=== PATIENT | male | born 1945 | race Caucasian/White ===

== ENCOUNTER 2018-07-27 11:40 | Emergency (ER) | payer BC, OTHER ==
[2018-07-27 11:48] VITALS: BP 147/75; PULSE 73; TEMP 97.8; BMI 21.2
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
== END 2018-07-27 13:17 | disposition home or self-care (01) ==
LOC: FER 11:40
DX: S97.82XA Crushing injury of left foot, initial encounter (principal); W22.8XXA Striking against or struck by other objects, initial encounter; Y93.89 Activity, other specified; Y92.89 Other specified places as the place of occurrence of the external cause; F17.210 Nicotine dependence, cigarettes, uncomplicated
CPT/HCPCS: 73610-TC-LT-FY; 73630-TC-LT; 99281-25

== ENCOUNTER 2023-12-28 18:25 | Emergency (ER) | payer OTHER ==
[2023-12-28 18:37] VITALS: BP 146/84; PULSE 73; RESP 20; TEMP 99.2; BMI 21.2
[2023-12-28] MEDS ORDERED: DALBAVANCIN HCL 500 MG VIAL (RESTRICTED TO ID ONLY) IVPB ONE (19:57)
[2023-12-28] MEDS ORDERED: ACETAMINOPHEN INJECTION 100 ML IVPB ONE (19:58)
[2023-12-28 20:04] LABS: HEMATOCRIT 39.5 % (35.4-49); HEMOGLOBIN 13.1 G/dL (11.7-16.9); MCH 30.9 pg (25.7-33.7); MCHC 33.1 g/dl (32.0-35.9); MEAN CELL VOLUME 93.3 fl (80-96); MEAN PLT VOLUME 8.1 fl (7.5-11.1); PLATELET COUNT 237.1 10^3/uL (134-434); RBC 4.23 10^6/uL (4.00-5.60); RDW 13.7 % (11.9-15.9); WHITE BLOOD COUNT 10.8 10^3/uL (4.0-10.8)
[2023-12-28] MEDS: ACETAMINOPHEN 1000 MG/100 ML BAG IVPB ONE (20:08)
[2023-12-28] MEDS: DALBAVANCIN HCL 1,500 MG in DEXTROSE 5%-WATER - 500 ML IVPB ONE (20:08)
[2023-12-28 20:29] LABS: ALBUMIN 4.3 g/dl (3.4-5.0); BILIRUBIN,TOTAL 0.5 mg/dl (0.2-1); CALCIUM 9.3 mg/dl (8.5-10.1); CREATININE 0.9 mg/dl (0.6-1.3); TOT PROT 6.9 g/dl (6.4-8.2)
== END 2023-12-28 21:44 | disposition home or self-care (01) ==
LOC: FER 18:25
PROC: 3E033GC Introduction of Other Therapeutic Substance into Peripheral Vein, Percutaneous Approach (ICD-10-PCS; principal; 2023-12-28)
PROC: 3E030NZ Introduction of Analgesics, Hypnotics, Sedatives into Peripheral Vein, Open Approach (ICD-10-PCS; 2023-12-28)
DX: L03.114 Cellulitis of left upper limb (principal)
CPT/HCPCS: 36415; 80053; 85027; 87040; 96365; 96375; 99284-25; J0131; J0875

== ENCOUNTER 2023-12-30 11:25 | Emergency (ER) | payer OTHER ==
[2023-12-30 12:12] VITALS: BP 138/93; PULSE 90; RESP 16; TEMP 97.9; BMI 32.6
== END 2023-12-30 12:14 | disposition home or self-care (01) ==
LOC: FER 11:25
DX: L03.012 Cellulitis of left finger (principal)
CPT/HCPCS: 99283-25

== ENCOUNTER 2025-01-20 13:56 | Emergency (ER) | payer OTHER ==
[2025-01-20] MEDS: SODIUM CHLORIDE 0.9% 500 ML INFUS.BAG IV ONE (14:20)
[2025-01-20] MEDS: ACETAMINOPHEN 1000 MG/100 ML BAG IVPB ONE (14:20)
[2025-01-20 14:21] VITALS: BP 133/70; PULSE 64; RESP 20; TEMP 98.2; BMI 23.4
[2025-01-20] MEDS ORDERED: ACETAMINOPHEN INJECTION 100 ML ONE (14:45)
[2025-01-20 15:16] LABS: ABSOLUTE IMMATURE GRANULOCYTES 0.03 x10^3/uL (0.0-0.031); BASOPHILS # 0.02 x10^3/uL (0.01-0.08); EOSINOPHIL % 0.4 % (0.8-7.0); EOSINOPHILS # 0.05 x10^3/uL (0.04-0.54); HEMATOCRIT 37.5 % (40.1-51.0); HEMOGLOBIN 12.4 g/dL (13.7-17.5); MCHC 33.1 g/dl (32.3-36.5); MEAN CELL VOLUME 93.1 fl (79.0-92.2); MEAN PLT VOLUME 9.8 fl (9.4-12.4); MONOCYTE # 1.74 x10^3/uL (0.30-0.82); MONOCYTE % 12.2 % (5.3-12.2); PLATELET COUNT 334 x10^3/uL (163-337)
[2025-01-20 15:23] LABS: CALCIUM 8.6 mg/dl (8.5-10.1); POTASSIUM 4.1 mmol/L (3.5-5.1)
[2025-01-20] MEDS ORDERED: cefTRIAXone SODIUM 1 GM VIAL ONE (15:40)
[2025-01-20] MEDS ORDERED: AZITHROMYCIN 500 MG VIAL IVPB ONE (15:40)
[2025-01-20] MEDS: CEFTRIAXONE 1,000 MG in DEXTROSE 5%-WATER - 50 ML IVPB ONE (16:01)
[2025-01-20] MEDS: AZITHROMYCIN IVPB 500 MG in DEXTROSE 5%-WATER - 250 ML IVPB ONE (16:07)
[2025-01-20] MEDS: BENZONATATE 200 MG CAPSULE PO ONE (16:27)
== END 2025-01-20 18:41 | disposition home or self-care (01) ==
LOC: FER 13:56
PROC: 3E03329 Introduction of Other Anti-infective into Peripheral Vein, Percutaneous Approach (ICD-10-PCS; principal; 2025-01-20)
PROC: 3E03329 Introduction of Other Anti-infective into Peripheral Vein, Percutaneous Approach (ICD-10-PCS; 2025-01-20)
PROC: 3E033NZ Introduction of Analgesics, Hypnotics, Sedatives into Peripheral Vein, Percutaneous Approach (ICD-10-PCS; 2025-01-20)
DX: J18.9 Pneumonia, unspecified organism (principal); R05.9 Cough, unspecified; M79.10 Myalgia, unspecified site; R68.83 Chills (without fever)
CPT/HCPCS: 0241U-QW; 36415; 71046-TC-FY; 71275-TC; 80048; 83605; 84484; 85025; 87040; 93005; 99285-25; J0131; Q9967